=== PATIENT | male | born 1995 | race Caucasian/White ===

== ENCOUNTER 2017-07-17 15:39 | Emergency (ER) | payer OTHER ==
[~2017-07-17] VITALS: Ht 175.3 cm; Wt 88.5 kg
[2017-07-17 17:55] VITALS: BP 138/91
== END 2017-07-17 17:55 | disposition home or self-care (01) ==
LOC: ED 15:39
DX: B35.4 Tinea corporis (principal); L01.00 Impetigo, unspecified; B95.8 Unspecified staphylococcus as the cause of diseases classified elsewhere; J45.909 Unspecified asthma, uncomplicated; F12.90 Cannabis use, unspecified, uncomplicated

== ENCOUNTER 2018-04-01 06:34 | Emergency (ER) | payer SELFPAY ==
[~2018-04-01] VITALS: Ht 172.7 cm; Wt 89.5 kg
[2018-04-01 06:40] VITALS: Ht 172.7 cm; Wt 89.5 kg
[2018-04-01 07:32] LABS: CALCIUM 8.7 mg/dL (8.5-10.1); CARBON DIOXIDE 24.7 mmol/L (21-32); CHLORIDE SERUM 103 mmol/L (98-107); CREATININE SERUM 0.9 mg/dL (0.7-1.3); GFR1 > 60 mL/min; GLUCOSE SERUM 103 mg/dL (74-106); POTASSIUM SERUM 3.4 mmol/L (3.5-5.1); SODIUM SERUM 136 mmol/L (136-145)
[2018-04-01 07:57] VITALS: BP 109/71
== END 2018-04-01 09:17 | disposition home or self-care (01) ==
LOC: ED 06:34
PROVIDERS: Emergency Medicine
DX: F41.1 Generalized anxiety disorder (principal); J45.909 Unspecified asthma, uncomplicated

== ENCOUNTER 2018-09-20 11:23 | Emergency (ER) | payer SELFPAY ==
[~2018-09-20] VITALS: Ht 175.3 cm; Wt 93.0 kg
[2018-09-20 11:39] VITALS: BP 115/74; Ht 175.3 cm; Wt 93.0 kg
== END 2018-09-20 13:33 | disposition home or self-care (01) ==
LOC: ED 11:23
DX: R51 Headache (principal); F17.210 Nicotine dependence, cigarettes, uncomplicated; J45.909 Unspecified asthma, uncomplicated

== ENCOUNTER 2019-11-16 14:01 | Emergency (ER) | payer MEDICAID ==
[~2019-11-16] VITALS: Ht 175.3 cm; Wt 90.3 kg
[2019-11-16 14:15] VITALS: Ht 175.3 cm; Wt 90.3 kg
[2019-11-16 15:06] LABS: microscopic required? YES; urine erythrocyte TRACE (NEGATIVE)
[2019-11-16 19:03] VITALS: BP 126/79
[2019-11-18 08:28] LABS: RAPID PLASMA REAGIN Non Reactive (Non Reactive)
== END 2019-11-16 19:03 | disposition home or self-care (01) ==
LOC: ED 14:01
PROVIDERS: Emergency Medicine
DX: A56.8 Sexually transmitted chlamydial infection of other sites (principal); A54.9 Gonococcal infection, unspecified
CPT/HCPCS: 36415; 87491; 87591; J0696

== ENCOUNTER 2019-12-11 14:50 | Emergency (ER) | payer MEDICAID ==
[~2019-12-11] VITALS: Ht 175.3 cm; Wt 90.3 kg
[2019-12-11 14:55] VITALS: BP 143/91; Ht 175.3 cm; Wt 90.3 kg
[2019-12-11 16:25] LABS: microscopic required? YES; urine erythrocyte NEGATIVE (NEGATIVE)
== END 2019-12-11 17:18 | disposition home or self-care (01) ==
LOC: ED 14:50
PROVIDERS: Emergency Medicine
DX: J02.8 Acute pharyngitis due to other specified organisms (principal); J45.909 Unspecified asthma, uncomplicated; F17.210 Nicotine dependence, cigarettes, uncomplicated

== ENCOUNTER 2020-03-05 09:46 | Emergency (ER) | payer OTHER ==
[~2020-03-05] VITALS: Ht 175.3 cm; Wt 89.8 kg
[2020-03-05 09:57] VITALS: BP 159/108; Ht 175.3 cm; Wt 89.8 kg
== END 2020-03-05 15:02 | disposition left against medical advice (07) ==
LOC: ED 09:46
DX: Z53.21 Procedure and treatment not carried out due to patient leaving prior to being seen by health care provider (principal)
CPT/HCPCS: 87491; 87591

== ENCOUNTER 2020-04-10 08:12 | Emergency (ER) | payer OTHER ==
[~2020-04-10] VITALS: Ht 175.3 cm; Wt 96.6 kg
[2020-04-10 08:26] VITALS: BP 131/85; Ht 175.3 cm; Wt 96.6 kg
[2020-04-10 09:24] LABS: microscopic required? NO
[2020-04-10 09:48] LABS: UA SPECIFIC GRAVITY 1.025 (1.005-1.035); urine erythrocyte NEGATIVE (NEGATIVE)
== END 2020-04-10 09:24 | disposition home or self-care (01) ==
LOC: ED 08:12
PROVIDERS: Emergency Medicine
DX: N47.1 Phimosis (principal); N48.1 Balanitis; J45.909 Unspecified asthma, uncomplicated
CPT/HCPCS: 87491; 87591

== ENCOUNTER 2020-04-21 21:27 | Emergency (ER) | payer OTHER ==
[~2020-04-21] VITALS: Ht 175.3 cm; Wt 97.1 kg
[2020-04-21 21:33] VITALS: Ht 175.3 cm; Wt 97.1 kg
[2020-04-21 21:54] VITALS: BP 147/101
== END 2020-04-21 21:54 | disposition home or self-care (01) ==
LOC: ED 21:27
DX: N47.1 Phimosis (principal); B37.9 Candidiasis, unspecified; J45.909 Unspecified asthma, uncomplicated

== ENCOUNTER 2020-05-25 22:19 | Emergency (ER) | payer OTHER, SELFPAY ==
[2020-05-25 23:05] VITALS: BP 131/97
== END 2020-05-25 23:05 | disposition home or self-care (01) ==
LOC: ED 22:19
DX: M79.10 Myalgia, unspecified site (principal); R50.9 Fever, unspecified; J45.909 Unspecified asthma, uncomplicated; Z20.828 Contact with and (suspected) exposure to other viral communicable diseases
CPT/HCPCS: U0003-CS